=== PATIENT | female | born 1980 | race African-American/Black ===

== ENCOUNTER 2022-05-02 04:03 | Day surgery (SDC) | payer BC, OTHER ==
[2022-04-26 16:12] VITALS: BMI 30.7
[2022-05-02] MEDS ORDERED: PHENAZOPYRIDINE HCL 100 MG TABLET (FP) PO ONE (06:30)
[2022-05-02] MEDS ORDERED: TRANEXAMIC ACID 1000 MG/10 ML VIAL IVPUSH ONE (06:30)
[2022-05-02] MEDS ORDERED: GABAPENTIN 300 MG CAPSULE PO ONE (06:30)
[2022-05-02] MEDS ORDERED: GABAPENTIN 300 MG CAPSULE ONE (06:45)
[2022-05-02] MEDS ORDERED: PHENAZOPYRIDINE HCL 100 MG TABLET (FP) ONE (06:45)
[2022-05-02] MEDS ORDERED: ceFAZolin SODIUM 1 GM VIAL ONE (06:46)
[2022-05-02] MEDS ORDERED: ROPIVACAINE HCL 0.5% 30ML VIAL ONE (07:26)
[2022-05-02] MEDS ORDERED: SUCCINYLCHOLINE CHLORIDE 200 MG/10 ML SYRINGE ONE (07:28)
[2022-05-02] MEDS ORDERED: PROPOFOL 20 ML ONE (07:28)
[2022-05-02] MEDS ORDERED: MIDAZOLAM HCL 2 MG/2 ML SINGLE DOSE VIAL ONE (07:28)
[2022-05-02] MEDS ORDERED: CEFAZOLIN SODIUM 2 GM in DEXTROSE 5%-WATER 100 ML IVPB ONE (07:30)
[2022-05-02] MEDS ORDERED: ROCURONIUM BROMIDE 50 MG/5 ML SYRINGE ONE (08:00)
[2022-05-02] MEDS ORDERED: ceFAZolin SODIUM 1 GM VIAL IVPB ONE (08:12)
[2022-05-02] MEDS ORDERED: DEXAMETHASONE SOD PHOSPHATE 4 MG/1 ML VIAL ONE (08:19)
[2022-05-02] MEDS ORDERED: SUGAMMADEX SODIUM 200 MG/2 ML VIAL ONE (09:17)
[2022-05-02] MEDS ORDERED: NEOSTIGMINE METHYLSULFATE 0.5 MG/ML - 10 ML MDV ONE (09:17)
[2022-05-02] MEDS ORDERED: ONDANSETRON 4 MG/2 ML VIAL IVPUSH PRN ×2 (09:42→10:20)
[2022-05-02] MEDS ORDERED: HYDROmorphone HCl 2 MG/ML VIAL IVPUSH PRN (09:43)
[2022-05-02] MEDS ORDERED: ACETAMINOPHEN 1000 MG/100 ML BAG IVPB PRN (09:43)
[2022-05-02] MEDS ORDERED: oxyCODONE HCL 5 MG TABLET PO PRN ×2 (09:43)
[2022-05-02] MEDS ORDERED: LACTATED RINGERS SOLUTION 1,000 ML IV SCH (09:45)
[2022-05-02] MEDS ORDERED: IBUPROFEN 800 MG/8 ML IJ IVPB PRN (10:20)
[2022-05-02] MEDS ORDERED: DOCUSATE SODIUM 100 MG CAPSULE (FP) PO PRN (10:20)
[2022-05-02] MEDS ORDERED: BISACODYL 5 MG TABLET.DR (FP) PO PRN (10:20)
[2022-05-02] MEDS ORDERED: ACETAMINOPHEN 325 MG TABLET (FP) PO PRN (10:20)
[2022-05-02 10:58] VITALS: RESP 18
[2022-05-02] MEDS ORDERED: HYDROmorphone HCl 2 MG/ML VIAL ONE (11:04)
[2022-05-02] MEDS: IBUPROFEN 800 MG/8 ML IJ IVPB SCH ×2 (11:45→21:00)
[2022-05-02] MEDS: CEFAZOLIN 1 GM in DEXTROSE 5%-WATER - 50 ML IVPB SCH (17:53)
[2022-05-02 18:48] LABS: HEMATOCRIT 35.4 % (32.4-45.2); HEMOGLOBIN 11.9 GM/dL (10.7-15.3); MCH 29.4 pg (25.7-33.7); MCHC 33.5 g/dl (32.0-36.0); MEAN CELL VOLUME 87.7 fl (80-96); MEAN PLT VOLUME 9.3 fl (7.5-11.1); PLATELET COUNT 250 10^3/uL (134-434); RBC 4.04 M/mm3 (3.60-5.2); RDW 13.3 % (11.6-15.6); WHITE BLOOD COUNT 9.1 K/mm3 (4.0-10.0)
[2022-05-02 19:15] LABS: CALCIUM 9.3 mg/dL (8.5-10.1)
[2022-05-02 19:17] LABS: BLOOD UREA NITROGEN 8.8 mg/dL (7-18)
[2022-05-02] MEDS: SIMETHICONE 80 MG TAB.CHEW (FP) PO PRN (21:02)
[2022-05-03] MEDS: CEFAZOLIN 1 GM in DEXTROSE 5%-WATER - 50 ML IVPB SCH ×2 (03:20→09:57)
[2022-05-03] MEDS: IBUPROFEN 800 MG/8 ML IJ IVPB SCH ×2 (05:46→11:18)
[2022-05-03 08:34] LABS: HEMATOCRIT 29.5 % (32.4-45.2); MCH 29.2 pg (25.7-33.7); MCHC 33.8 g/dl (32.0-36.0); MEAN CELL VOLUME 86.4 fl (80-96); MEAN PLT VOLUME 9.7 fl (7.5-11.1); PLATELET COUNT 234 10^3/uL (134-434); RBC 3.42 M/mm3 (3.60-5.2); RDW 13.3 % (11.6-15.6); WHITE BLOOD COUNT 8.7 K/mm3 (4.0-10.0)
[2022-05-03 08:54] LABS: CALCIUM 8.6 mg/dL (8.5-10.1)
[2022-05-03 08:55] LABS: BLOOD UREA NITROGEN 8.6 mg/dL (7-18)
[2022-05-03 08:58] LABS: CREATININE 0.8 mg/dL (0.55-1.3)
[2022-05-03] MEDS ORDERED: ENOXAPARIN NA (PORCINE) 40 MG/0.4 ML DISP.SYRIN SQ SCH (10:00)
[2022-05-03 15:10] VITALS: BP 109/68; PULSE 89; TEMP 983
[2022-05-03] MEDS: SIMETHICONE 80 MG TAB.CHEW (FP) PO PRN (16:20)
== END 2022-05-03 18:00 | disposition home or self-care (01) ==
LOC: JASUSAT 04:03 → J3W 12:32 → JASUSAT 05-03 18:00
PROVIDERS: ATTEND Obstetrics & Gynecology
PROC: 0UB74ZZ Excision of Bilateral Fallopian Tubes, Percutaneous Endoscopic Approach (ICD-10-PCS; 2022-05-02)
PROC: 0UB04ZZ Excision of Right Ovary, Percutaneous Endoscopic Approach (ICD-10-PCS; 2022-05-02)
PROC: 0UT94ZZ Resection of Uterus, Percutaneous Endoscopic Approach (ICD-10-PCS; principal; 2022-05-02 07:30)
DX: D39.8 Neoplasm of uncertain behavior of other specified female genital organs (principal); D25.1 Intramural leiomyoma of uterus; N80.0 Endometriosis of uterus; N92.0 Excessive and frequent menstruation with regular cycle; E28.2 Polycystic ovarian syndrome; N83.201 Unspecified ovarian cyst, right side; N72 Inflammatory disease of cervix uteri
CPT/HCPCS: 36415; 80048; 81025; 85027; 88304-TC; 88305-TC; 94010; 94760